=== PATIENT | female | born 1985 | race Caucasian/White ===

== ENCOUNTER 2016-06-02 18:11 | Emergency (ER) | payer SELFPAY ==
[2016-06-02 18:41] VITALS: BP 125/74
--- NOTE | 2016-06-02 20:16 | ED ---
Throat Pain/Nasal Congestion - HPI Summary HPI Summary: 31 yr old female with isolated sore throat. Onset two days ago, she feels like she has strep throat again. She denies drooling. She denies hoarse voice. She denies change in voice. The patient states she has taken amoxicillin before for strep throat. - History of Current Complaint Chief Complaint: UCGeneralIllness Time Seen by Provider: 06/02/16 19:29 - Allergies/Home Medications Allergies/Adverse Reactions: Allergies Allergy/AdvReac Type Severity Reaction Status Date / Time Aspirin Allergy Severe can range Verified 06/02/16 18:41 from rash to seizure Iron Allergy Severe can range Verified 06/02/16 18:41 from rash to seizure Povidone Iodine Allergy Unknown Unknown Verified 06/02/16 18:41 [From Betadine] Reaction Details monosodium glutamate Allergy Severe can range Uncoded 06/02/16 18:41 from headache to seizure tegaderm patch Allergy Intermediate Rash Uncoded 06/02/16 18:41 vitamins Allergy Unknown can range Uncoded 06/02/16 18:41 from headache to seizure Home Medications: Home Medications Acetaminophen [Extra Strength Acetaminop] 1,500 mg PO Q6H PRN 06/02/16 [History Confirmed 06/02/16] PMH/Surg Hx/FS Hx/Imm Hx EENT History: Reports: Pharyngitis Neurological History: Reports: Hx Seizures - Surgical History Surgery Procedure, Year, and Place: C section x's 2 Infectious Disease History: No Infectious Disease History: Denies: Traveled Outside the [place] in Last 30 Days - Family History Known Family History: Positive: None Family History: no known cardio-vascular family history - Social History Alcohol Use: Rare Substance Use Type: Reports: None Smoking Status (MU): Light Every Day Tobacco Smoker Type: Cigarettes Amount Used/How Often: 1/2 PPD Length of Time of Smoking/Using Tobacco: 13 YRS Have You Smoked in the Last Year: Yes Review of Systems Positive: Chills Positive: Sore Throat. Negative: Dental Pain, Nasal Discharge Negative: Shortness Of Breath Skin: Negative Psychological: Normal All Other Systems Reviewed And Are Negative: Yes Physical Exam Triage Information Reviewed: Yes Vital Signs On Initial Exam: Initial Vitals Pulse Resp BP Pulse Ox 94 20 125/74 100 06/02/16 18:34 06/02/16 18:34 06/02/16 18:34 04/10/17 18:34 Vital Signs Reviewed: Yes Appearance: Positive: Well-Appearing, No Pain Distress Skin: Positive: Warm, Skin Color Reflects Adequate Perfusion Head/Face: Positive: Normal Head/Face Inspection Eyes: Positive: Normal, EOMI ENT: Positive: Pharyngeal erythema, TMs normal Neck: Positive: Supple, Nontender Respiratory/Lung Sounds: Positive: Clear to Auscultation, Breath Sounds Present Cardiovascular: Positive: Normal, RRR Abdomen Description: Positive: Nontender Musculoskeletal: Positive: Normal, Strength/ROM Intact Neurological: Positive: Normal, Sensory/Motor Intact, Alert, Oriented to Person Place, Time, CN Intact II-III Psychiatric: Positive: Normal Diagnostics - Vital Signs Vital Signs Pulse Resp BP Pulse Ox 06/02/16 18:34 94 20 125/74 100 - Laboratory Lab Results: Lab Results 06/02/16 Range/Units 19:44 POC Ur Test Negative (Negative) Lab Statement: Any lab studies that have been ordered have been reviewed, and results considered in the medical decision making process. EENT Course/Dx - Course Course Of Treatment: 31 yr old with sore throat. Two throat swabs came back invalid in the sampler. The patient refuses to do a third swab here. she wants to be treated for strep throat with amoxicillin. - Diagnoses Provider Diagnoses: Pharyngitis Discharge - Discharge Plan Condition: Good Disposition: HOME Prescriptions: Amoxicillin CAP* [Amoxicillin 500 MG CAP*] 500 mg PO TID #30 cap Patient Education Materials: Pharyngitis (ED) Referrals: Amy Galindo MD [Primary Care Provider] -
== END 2016-06-02 20:24 | disposition home or self-care (01) ==
LOC: UCCORT 18:11
DX: J02.9 Acute pharyngitis, unspecified (principal); Z88.6 Allergy status to analgesic agent; F17.210 Nicotine dependence, cigarettes, uncomplicated; Z32.02 Encounter for pregnancy test, result negative
CPT/HCPCS: 84702; 99212; G0463

== ENCOUNTER 2016-10-02 17:04 | Emergency (ER) | payer OTHER ==
[2016-10-02 17:18] VITALS: BP 110/62
--- NOTE | 2016-10-02 17:32 | UC ---
Throat Pain/Nasal [place] HPI - HPI Summary HPI Summary: complaint of sore throat and swollen right tonsil that started last night swollen lymph nodes in neck denies fever denies nasal congestion and cough took some naproxen with some relief - History of Current Complaint Chief Complaint: UCRespiratory Stated Complaint: SORE THROAT Time Seen by Provider: 10/02/16 17:25 Hx Obtained From: Patient Hx Last Menstrual Period: 9 YEARS AGO, HAS THE IMPLAMON - Allergies/Home Medications Allergies/Adverse Reactions: Allergies Allergy/AdvReac Type Severity Reaction Status Date / Time Aspirin Allergy Severe can range Verified 10/02/16 17:08 from rash to seizure Iron Allergy Severe can range Verified 10/02/16 17:08 from rash to seizure Povidone Iodine Allergy Unknown Unknown Verified 10/02/16 17:08 [From Betadine] Reaction Details monosodium glutamate Allergy Severe can range Uncoded 10/02/16 17:08 from headache to seizure tegaderm patch Allergy Intermediate Rash Uncoded 10/02/16 17:08 vitamins Allergy Unknown can range Uncoded 06/02/16 18:41 from headache to seizure Home Medications: Home Medications Naproxen [Naproxen 500 mg] 500 mg PO Q8H PRN 10/02/16 [History Confirmed ] PMH/Surg Hx/FS Hx/Imm Hx Previously Healthy: Yes - Surgical History Surgical History: Yes Surgery Procedure, Year, and Place: C section x's 2 - Family History Known Family History: Positive: None Family History: no known cardio-vascular family history - Social History Occupation: Employed Full-time Lives: With Family Alcohol Use: None Substance Use Type: None Smoking Status (MU): Light Every Day Tobacco Smoker Type: Cigarettes Amount Used/How Often: 3 CIGS PER WEEK Length of Time of Smoking/Using Tobacco: 13 YRS Have You Smoked in the Last Year: Yes Cessation Counseling: Patient Advised to Stop - Immunization History Most Recent Tetanus Shot: unknown Review of Systems Constitutional: Negative Skin: Negative Eyes: Negative ENT: Sore Throat Respiratory: Negative Cardiovascular: Negative Gastrointestinal: Negative Genitourinary: Negative Motor: Negative Neurovascular: Negative Musculoskeletal: Negative Neurological: Negative Psychological: Negative All Other Systems Reviewed And Are Negative: Yes Physical Exam Triage Information Reviewed: Yes Appearance: No Pain Distress, Well-Nourished Vital Signs: Initial Vital Signs Temp 97.4 F 10/02/16 17:10 Pulse 83 10/02/16 17:10 Resp 18 10/02/16 17:10 BP 110/62 10/02/16 17:10 Pulse Ox 99 10/02/16 17:10 Vital Signs Reviewed: Yes Eyes: Positive: Conjunctiva Clear ENT: Positive: Pharyngeal erythema, TMs normal, Tonsillar swelling, Tonsillar exudate. Negative: Nasal congestion, Nasal drainage Dental: Positive: Cervical Lymphadenopathy - right side Neck: Positive: Supple Respiratory: Positive: Lungs clear, Normal breath sounds, No respiratory distress Cardiovascular: Positive: RRR, No Murmur, Pulses Normal Abdomen Description: Positive: Nontender, Soft Bowel Sounds: Positive: Present Musculoskeletal: Positive: No Edema Neurological: Positive: Alert Psychological Exam: Normal Skin Exam: Normal Throat Pain/Nasal Course/Dx - Differential Dx/Diagnosis Differential Diagnosis/HQI/PQRI: Pharyngitis, Tonsillitis Provider Diagnoses: pharyngitis Discharge - Discharge Plan Condition: Stable Disposition: HOME Patient Education Materials: Pharyngitis (ED) Referrals: Amy Galindo MD [Primary Care Provider] - Additional Instructions: Increase fluids and rest Take acetaminophen or ibuprofen for fever or pain Please review your discharge instructions. If your symptoms do not improve please call your primary care provider or return to urgent care.
== END 2016-10-02 17:43 | disposition home or self-care (01) ==
LOC: UCCORT 17:04
DX: J02.9 Acute pharyngitis, unspecified (principal); Z88.6 Allergy status to analgesic agent; F17.210 Nicotine dependence, cigarettes, uncomplicated
CPT/HCPCS: 87651; 99211; G0463

== ENCOUNTER 2017-01-27 15:33 | Emergency (ER) | payer OTHER ==
[2017-01-27 16:03] VITALS: BP 118/78
--- NOTE | 2017-01-27 16:44 | UC ---
Complaint Female HPI - HPI Summary HPI Summary: urinary frequency x 2 weeks, suprapubic pain , urgency no fever, no chills, no flank pain - History Of Current Complaint Chief Complaint: UCGU Stated Complaint: URINARY/PAIN WHEN WALKING Time Seen by Provider: 01/27/17 16:35 Hx Obtained From: Patient Hx Last Menstrual Period: 9 YEARS AGO, HAS THE IMPLAMON ?: No Onset/Duration: Gradual Onset, Lasting Weeks - 2, Still Present Timing: Constant Severity Initially: Moderate Severity Currently: Moderate Character: Cramping Aggravating Factor(s): Urination Associated Signs And Symptoms: Negative: Fever, Back Pain, Vaginal Bleeding/ Discharge, Vaginal Discharge, Nausea, Vomiting(# Of Episodes =), Genital Swelling, Genital Blisters, Retained Foregin Body (Specify) - Allergies/Home Medications Allergies/Adverse Reactions: Allergies Allergy/AdvReac Type Severity Reaction Status Date / Time Aspirin Allergy Severe can range Verified 01/27/17 15:57 from rash to seizure Iron Allergy Severe can range Verified 01/27/17 15:57 from rash to seizure Povidone Iodine Allergy Unknown Unknown Verified 01/27/17 15:57 [From Betadine] Reaction Details monosodium glutamate Allergy Severe can range Uncoded 01/27/17 15:57 from headache to seizure tegaderm patch Allergy Intermediate Rash Uncoded 01/27/17 15:57 vitamins Allergy Unknown can range Uncoded 01/27/17 15:57 from headache to seizure PMH/Surg Hx/FS Hx/Imm Hx Previously Healthy: Yes - Surgical History Surgical History: Yes Surgery Procedure, Year, and Place: C section x's 2 - Family History Known Family History: Positive: None Negative: Cardiac Disease Family History: no known cardio-vascular family history - Social History Alcohol Use: None Substance Use Type: None Smoking Status (MU): Former Smoker Type: Cigarettes Amount Used/How Often: 3 CIGS PER WEEK Length of Time of Smoking/Using Tobacco: 13 YRS Have You Smoked in the Last Year: Yes - Immunization History Most Recent Tetanus Shot: unknown Review of Systems Constitutional: Negative Skin: Negative Eyes: Negative ENT: Negative Respiratory: Negative Cardiovascular: Negative Genitourinary: Frequency, Urgency Is Patient Immunocompromised?: No All Other Systems Reviewed And Are Negative: Yes Physical Exam Triage Information Reviewed: Yes Appearance: Well-Appearing, No Pain Distress, Well-Nourished Vital Signs: Initial Vital Signs Temp 97.7 F 01/27/17 15:53 Pulse 98 01/27/17 15:53 Resp 16 01/27/17 15:53 BP 118/78 01/27/17 15:53 Pulse Ox 100 01/27/17 15:53 Vital Signs Reviewed: Yes Eyes: Positive: Conjunctiva Clear ENT: Positive: Normal ENT inspection, Hearing grossly normal, Pharynx normal Neck: Positive: Supple, Nontender, No Lymphadenopathy Respiratory: Positive: Chest non-tender, Lungs clear, Normal breath sounds Cardiovascular: Positive: RRR, No Murmur, Pulses Normal Abdomen Description: Positive: Soft, Other: - lower abd pain. Negative: CVA Tenderness (R), CVA Tenderness (L), Distended, Guarding Bowel Sounds: Positive: Present Skin Exam: Normal Complaint Female Dx - Differential Dx/Diagnosis Provider Diagnoses: uti Discharge - Discharge Plan Condition: Stable Disposition: HOME Prescriptions: Sulfamethox/Trimethoprim DS* [Bactrim DS 800/160 TAB*] 1 tab PO BID #14 tab Patient Education Materials: Urinary Tract Infection in Women (ED) Referrals: Amy Galindo MD [Primary Care Provider] - 7 Days
== END 2017-01-27 16:46 | disposition home or self-care (01) ==
LOC: UCCORT 15:33
DX: N39.0 Urinary tract infection, site not specified (principal); B96.20 Unspecified Escherichia coli [E. coli] as the cause of diseases classified elsewhere; Z32.02 Encounter for pregnancy test, result negative; Z88.6 Allergy status to analgesic agent; Z87.891 Personal history of nicotine dependence
CPT/HCPCS: 81003; 84702; 87077; 87086; 87186; 99212; G0463

== ENCOUNTER 2019-05-09 18:13 | Emergency (ER) | payer OTHER ==
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
[2019-05-09 18:28] VITALS: BP 131/86
--- NOTE | 2019-05-09 19:14 | UC ---
Throat Pain/Nasal Rico HPI - HPI Summary HPI Summary: 34 y/o F at 36 weeks p/w sore throat for 2-3 days. No trouble swallowing or breathing. Has dry cough, no fever or SOB. Son at home sick w similar symptoms. - History of Current Complaint Chief Complaint: UCRespiratory Stated Complaint: SORE THROAT, COUGH Time Seen by Provider: 05/09/19 18:20 Hx Last Menstrual Period: pt is 26 weeks Pain Intensity: 9 - Allergies/Home Medications Allergies/Adverse Reactions: Allergies Allergy/AdvReac Type Severity Reaction Status Date / Time iron Allergy Severe can range Verified 05/09/19 18:29 from rash to seizure aspirin Allergy Intermediate can range Verified 05/09/19 18:29 from rash to seizure povidone-iodine Allergy Unknown Unknown Verified 05/09/19 18:29 [From Betadine] Reaction Details soap [From Betadine] Allergy Unknown Unknown Verified 05/09/19 18:29 Reaction Details monosodium glutamate Allergy Severe can range Uncoded 05/09/19 18:29 from headache to seizure tegaderm patch Allergy Intermediate Rash Uncoded 05/09/19 18:29 vitamins Allergy Unknown can range Uncoded 05/09/19 18:29 from headache to seizure Home Medications: Home Medications Acetaminophen [Tylenol Extra Strength] 500 mg PO DAILY 03/05/19 [History Confirmed 05/09/19] Folic Acid TAB* [Folvite TAB*] 1 mg PO DAILY 03/05/19 [History Confirmed ] PMH/Surg Hx/FS Hx/Imm Hx Previously Healthy: Yes - Surgical History Surgical History: Yes Surgery Procedure, Year, and Place: C section x's 2 - Family History Known Family History: Positive: None Negative: Cardiac Disease Family History: no known cardio-vascular family history - Social History Alcohol Use: None Substance Use Type: None Smoking Status (MU): Light Every Day Tobacco Smoker Type: Cigarettes Amount Used/How Often: 3 CIGS PER WEEK Length of Time of Smoking/Using Tobacco: 13 YRS Have You Smoked in the Last Year: Yes - Immunization History Most Recent Tetanus Shot: unknown Vaccination Up to Date: Yes Review of Systems All Other Systems Reviewed And Are Negative: Yes ENT: Positive: Sore Throat Respiratory: Positive: Cough Physical Exam - Summary Physical Exam Summary: Constitutional: Well-developed, Well-nourished, Alert. (-) Distressed Skin: Warm, Dry HENT: Normocephalic; Atraumatic Eyes: Conjunctiva normal Neck: Musculoskeletal ROM normal neck. (-) JVD, (-) Stridor Cardio: Rhythm regular, rate normal, Heart sounds normal; Intact distal pulses; Radial pulses are 2+ and symmetric. (-) Murmur Pulmonary/Chest wall: Effort normal. (-) Respiratory distress, (-) Wheezes, (-) Rales Abd: Soft, (-) tenderness, gravid, (-) Guarding, (-) Rebound Musculoskeletal: (-) Edema Lymph: (+) Cervical adenopathy Neuro: Alert, Oriented x3 Psych: Mood and affect Normal Vital Signs: Initial Vital Signs Temp 36.1 C 05/09/19 18:22 Pulse 100 05/09/19 18:22 Resp 18 05/09/19 18:22 BP 131/86 05/09/19 18:22 Pulse Ox 100 05/09/19 18:22 Throat Pain/Nasal Course/Dx - Course Course Of Treatment: 34-year-old female presenting with sore throat. Patient URI-like symptoms, afebrile. Strep test negative. Advised likely viral. Out of window for tamilfu even if positive. Return precautions given - Differential Dx/Diagnosis Differential Diagnosis/HQI/PQRI: Epiglottitis Provider Diagnosis: Pharyngitis, URI (upper respiratory infection) Discharge ED - Sign-Out/Discharge Documenting (check all that apply): Patient Departure All imaging exams completed and their final reports reviewed: No Studies - Discharge Plan Condition: Stable Disposition: HOME Patient Education Materials: Pharyngitis (ED) Forms: *Work Release Referrals: Opal Betts MD [Primary Care Provider] - 2 Days Additional Instructions: You were seen in the emergency department for sore throat, your strep test was negative. Please drink lots of fluids including Gatorade and water, take Tylenol as needed for aches and pains. Please follow up with your primary care doctor in next 2-3 days and return to emergency department for fever greater than 100.4 for more than 5 days, trouble breathing, chest pain, severe headaches or neck pain, confusion, worsening or concerning symptoms. It was a pleasure taking care of you today. - Billing Disposition and Condition Condition: STABLE Disposition: Home
== END 2019-05-09 19:13 | disposition home or self-care (01) ==
LOC: UCCORT 18:13
DX: O99.513 Diseases of the respiratory system complicating pregnancy, third trimester (principal); O99.333 Smoking (tobacco) complicating pregnancy, third trimester; J02.9 Acute pharyngitis, unspecified; J06.9 Acute upper respiratory infection, unspecified; Z3A.36 36 weeks gestation of pregnancy; Z88.8 Allergy status to other drugs, medicaments and biological substances; Z91.09 Other allergy status, other than to drugs and biological substances
CPT/HCPCS: 87651; 99211; G0463